=== PATIENT | female | born 1940 | race Caucasian/White ===

== ENCOUNTER 2022-11-23 14:00 | Outpatient (AMB) | payer MEDICARE, OTHER, SELFPAY ==
--- NOTE | 2022-11-23 14:05 | MHC.OFFVIS ---
Intake Vital Signs 11/23/22 14:09 Height 5 ft 1 in Weight 153 lb 7.068 oz BMI 29.0 BP 112/60 Blood Pressure Location Rt brachial Position Sitting Pulse 68 Pulse Source Pulse Oximeter Temp 97.5 F Temp Source Skin Pulse Oximetry (%) 98 Intake Visit Reasons: RA Intake Note: New pt presents today for RA consult. Conference Manager Required: No Allergies doxycycline Allergy (Intermediate, Verified 11/23/22 10:48) Anaphylaxis Sulfa (Sulfonamide Antibiotics) Adverse Reaction (Severe, Verified 11/23/22 10:48) Vomiting meloxicam Adverse Reaction (Intermediate, Verified 11/23/22 10:48) Dizziness hydroxychloroquine [From Plaquenil] Adverse Reaction (Mild, Verified 11/23/22 14:49) Dizziness Antihistamines - Alkylamine Adverse Reaction (Unknown, Unverified 11/23/22 10:48) Unknown cortisone Adverse Reaction (Unknown, Unverified 11/23/22 10:48) Unknown diclofenac Adverse Reaction (Unknown, Unverified 11/23/22 10:48) Vertigo epinephrine Adverse Reaction (Unknown, Verified 11/23/22 10:48) Unknown naproxen [From Aleve] Adverse Reaction (Unknown, Unverified 11/23/22 10:48) Vertigo Penicillins Adverse Reaction (Unknown, Unverified 11/23/22 10:48) Rash prednisone Adverse Reaction (Unknown, Verified 11/23/22 10:48) Agitated, increased blood pressure simvastatin [From Zocor] Adverse Reaction (Unknown, Unverified 11/23/22 10:48) Unknown glipizide Adverse Reaction (Verified 11/23/22 10:48) Hypoglycemia metformin Adverse Reaction (Verified 11/23/22 10:48) Diarrhea Medication List - Last Reconciled 11/23/22 by Glenda Asencio MD atorvastatin 20 mg PO DAILY betamethasone valerate 0.1% appl topical bimatoprost 0.01% (Lumigan) 1 drp ophthalmic (eye) BEDTIME blood sugar diagnostic (FreeStyle Lite Strips) As directed cyclosporine 0.05% drps ophthalmic (eye) famotidine 20 mg PO DAILY PRN folic acid 1 mg PO DAILY leflunomide 10 mg PO DAILY pioglitazone 30 mg PO DAILY HPI HPI Comments History of Present Illness Details This is an 82-year-old female who presents as a new patient. Previous registered dental assistant rda left the practice. Patient was diagnosed with seropositive RA a few months ago when she presented with bilateral hand and wrist swelling pain and stiffness. She was started on prednisone and leflunomide with good results. She is currently on leflunomide 10 mg daily. Prednisone has been completely tapered off a month ago. Patient states that she was diagnosed with ankylosing spondylitis more than 10 years ago. She received NSAIDs. She does not recall being on DMARDs or injectables. States that her low back pain significantly improved with chiropractors, acupuncture, changing diet physical therapy and exercise. Is unaware of any history of iritis. She is unaware of any family history of autoimmune rheumatic disease. Denies any history of DVT/PE. States that she gets neck compression discomfort she does not really call it pain. It does not radiate to her hands or shoulders. She gets intermittently lightheaded and fell 3 times over the last few months. She also has bilateral ankle swelling without pain. She has had dry eyes for years and was using artificial tears until she was evaluated by another health and wellness manager early this year and had a laser procedure which was helpful and she was started on cyclosporine eyedrops. She also mentions that she has had dry mouth for years. She drinks plenty of water. Denies any significant dental problems over the last year. Per Dr. Doty from 10/01 visit Follow-up for new onset seropositive RA + CCP .? 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 I saw her for this more than 10 years ago.? She also carries a diagnosis of fibromyalgia.?? Starting in May of 2022 she had bilateral hand and wrist pain, swelling and pronounced stiffness.? In the mornings she was unable to fern picker a glass.? She was seen in Primary Care, had labs notable for high positive RF, ESR 18.? She was reluctant to go on prednisone (had marked anxiety on high-dose) but eventually started on prednisone 10 mg daily and within 3-4 days symptoms had all but vanished.?? I had her start methotrexate but intolerant (mouth sores, tongue swelling) then tried Plaquenil (intolerant:? Dizziness)? Now on leflunomide 10 mg daily and tolerates fine.?? Prednisone reduced to 3 mg? Reports only no hand symptoms.? No significant a.m. stiffness.? Able to resume full activity.? Mild puffiness around the ankles but no pain or stiffness? On questioning had dry mouth for years and past 1-2 years dry eyes as well.? No cough, pleuritic pain.? No rash.? No GI upset or diarrhea denies urinary incontinence?? 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 Review of Systems Const Reports fatigue Eyes Reports dry eyes and Reports itchy eyes ENT Reports dizziness, Reports dry mouth and Reports neck pain Reports urinary urgency Musc Reports arthralgias, Reports joint swelling and Reports neck pain Neuro Reports dizziness Endo Reports fatigue and Reports polydipsia Aller/Immun Reports itchy eyes Physical Exam Vital Signs: Last Vital Signs Temp 97.5 F 11/23/22 14:09 BMI result Body Mass Index 29.0 Const General: cooperative, healthy appearing and comfortable Nutritional Appearance: overweight Orientation/consciousness: patient oriented x3 Limitations: no limitations HEENT Head: Yes normocephalic and Yes atraumatic Mouth: moist mucous membranes Resp Effort & Inspection: normal respiratory effort and able to speak in complete sentences Auscultation: clear to auscultation bilaterally Cardio Rate: regular rate Rhythm: regular rhythm Skin General skin exam: no rashes or lesions noted Neuro General: patient oriented x3 Extrem Other: Osteoarthritic changes of both hands with prominent Heberden's nodes no active synovitis Prominence of left 1st MCP without tenderness Minimal bilateral wrist tenderness and mild pain with full flexion and extension Normal nailfold capillaroscopy Normal range of motion of both elbows and shoulders without pain Negative straight leg raise test bilaterally Negative Rishabh test bilaterally Filemon test within normal Results Reviewed Results Reviewed: CCP 24 (20-39 is weak positive) RACH IFA negative Lyme screen negative RF high positive CRP normal ESR 18 Assessment & Plan Assessment & Plan (1) Rheumatoid arthritis: Comment: +++RF+CCP Dx 06/01 pred 06/01 tapered off 11/01 MTX (mouth sores, tongue swelling) PLaquenil (dizziness) Leflunomide 10 mg around 08/01 effective Code(s): M06.9 - Rheumatoid arthritis, unspecified Qualifiers: Rheumatoid arthritis location: multiple sites Rheumatoid factor presence: with rheumatoid factor Qualified Code(s): M05.79 - Rheumatoid arthritis with rheumatoid factor of multiple sites without organ or systems involvement Plan: This is an 82-year-old female with recently diagnosed seropositive RA who presents as a new patient. How 2007 patient was diagnosed with HLA B27 positive ankylosing spondylitis, treated with NSAIDs then her back pain symptoms resolved with conservative measures. Her RA is well controlled on leflunomide 10 mg daily. Prednisone had been tapered off about a month ago. Check labs to evaluate disease activity. Check x-rays of involved joints Follow-up in 4 months (2) Sicca syndrome: Code(s): M35.00 - Sjogren syndrome, unspecified Plan: History of dry eye for many years started on cyclosporin 2022 with improvement. Mentions dry mouth for years. Mouth is moist on exam. He had a negative RACH, unlikely Sjogren's. Advised patient to try using Biotene products (3) Cervicalgia: Code(s): M54.2 - Cervicalgia Plan: Will check a neck x-ray (4) Lightheadedness: Code(s): R42 - Dizziness and giddiness Plan: Follow-up with PCP (5) Lower extremity edema: Code(s): R60.0 - Localized edema Plan: No synovitis. Follow-up with PCP (6) Encounter for monitoring leflunomide therapy: Code(s): Z51.81 - Encounter for therapeutic drug level monitoring; Z79.899 - Other ad terminal makeup operator (current) drug therapy Plan: Monitor safety labs (7) Bilateral primary osteoarthritis of knee: Code(s): M17.0 - Bilateral primary osteoarthritis of knee Plan: Patient states that she was told that she was bone on bone in both knees. Knee replacement was recommended patient was able to put it off through physical therapy and strengthening of her quadriceps muscles. Received a steroid injection in her left shoulder which caused significant agitation, received gel injections in the knees in the past and they were not helpful. Currently minimally symptomatic Plan I spent 63 minutes reviewing patient's chart, evaluating patient, ordering diagnostic workup, counseling patient and documenting in the chart Orders: Orders Comprehensive Met. Panel Today M06.9 - Rheumatoid arthritis, unspecified C Reactive Protein Today M06.9 - Rheumatoid arthritis, unspecified Erythrocyte Sedimentation Rate Today M06.9 - Rheumatoid arthritis, unspecified XR hand wrist LT Today M06.9 - Rheumatoid arthritis, unspecified Complete Blood Count Auto Diff Today M06.9 - Rheumatoid arthritis, unspecified Hepatitis A,B,C Profile Today Z11.59 - Encounter for screening for other viral diseases T Spot TB Today Z11.7 - Encounter for testing for latent tuberculosis infection Immunofixation Pnl, Serum Today M06.9 - Rheumatoid arthritis, unspecified Protein Electrophoresis, Serum Today M06.9 - Rheumatoid arthritis, unspecified XR hand wrist RT Today M06.9 - Rheumatoid arthritis, unspecified XR cervical spine 4V Today M06.9 - Rheumatoid arthritis, unspecified Coding Level of Care Code New Pt Level 5 (88017) Diagnoses Rheumatoid arthritis involving multiple sites with positive rheumatoid factor M05.79 Rheumatoid arthritis location: multiple sites Rheumatoid factor presence: with rheumatoid factor Sicca syndrome M35.00 Cervicalgia M54.2 Lightheadedness R42 Lower extremity edema R60.0 Encounter for monitoring leflunomide therapy Z51.81; Z79.899 Bilateral primary osteoarthritis of knee M17.0
[2022-11-23 14:09] VITALS: BP 112/60; PULSE 68; TEMP 36.4; O2SAT 98; BMI 29.0
== END 2022-11-23 14:46 | disposition home or self-care (01) ==
PROVIDERS: PCP Physician Assistant; Visit Provider Student in an Organized Health Care Education/Training Program
DX: M05.79 Rheumatoid arthritis with rheumatoid factor of multiple sites without organ or systems involvement (principal); M35.00 Sjogren syndrome, unspecified; M54.2 Cervicalgia; R42 Dizziness and giddiness; R60.0 Localized edema; Z51.81 Encounter for therapeutic drug level monitoring; Z79.899 Other long term (current) drug therapy; M17.0 Bilateral primary osteoarthritis of knee
CPT/HCPCS: 99205

== ENCOUNTER 2022-11-23 14:00 | Outpatient (REF) | payer MEDICARE, OTHER, SELFPAY ==
--- NOTE | ~2022-11-23 | XR_ITS ---
EXAMINATION: XR cervical spine 4V CLINICAL INFORMATION: Rheumatoid arthritis COMPARISON: None TECHNIQUE: 7 views of the cervical spine were obtained. FINDINGS: The cervical spine is visualized to the level of C6-C7 on the lateral view. Vertebral body alignment is maintained. Vertebral body heights are maintained. Lateral masses of C1 are well aligned on C2. Visualized portion of the dens is intact. Moderate the level degenerative disc disease with loss of disc space height, degenerative endplate spurring and facet arthropathy. No definite cortical erosions. Uncovertebral hypertrophy and facet arthropathy results in moderate left greater than right bilateral neural foraminal narrowing worst on the left at C4-C5 and C5-C6. No prevertebral soft tissue swelling. Calcifications in the soft tissues of the left neck may reflect carotid calcifications. XR/XR cervical spine 4V IMPRESSION: 1. Moderate spondylosis of the cervical spine, as above detailed. 2. Moderate neural foraminal narrowing, as above detailed. 3. Calcifications in the soft tissues of the left neck may reflect carotid calcifications, which could be better evaluated with dedicated carotid ultrasound if warranted.
--- NOTE | ~2022-11-23 | XR_ITS ---
EXAMINATION: XR hand wrist LT, XR hand wrist RT CLINICAL INFORMATION: Reason for Exam M06.9 - Rheumatoid arthritis, unspecified COMPARISON: None. TECHNIQUE: 4 views of the bilateral hands and wrists. FINDINGS: No acute fracture or dislocation. Mild degenerative changes of the left hand involving distal interphalangeal joints with degenerative spurring. No definite left cortical erosion. Mild degenerative changes of the right hand and wrist with degenerative spurring of the distal interphalangeal joints with subchondral sclerosis at the first metacarpophalangeal joint. Well corticated osseous fragment dorsal to the right second DIP joint may reflect sequelae of remote avulsion injury. Nonspecific cystic change in the capitate. No soft tissue abnormality. XR/XR hand wrist LT IMPRESSION: 1. Mild degenerative changes of the left hand involving the distal interphalangeal joints, with no cortical erosion. 2. Mild degenerative changes of the right hand and wrist involving the distal interphalangeal joints and first metacarpophalangeal joint, with nonspecific cystic change in the capitate. 3. Well-corticated osseous fragment dorsal to the right second DIP joint may reflect sequelae of remote avulsion injury.
--- NOTE | ~2022-11-23 | XR_ITS ---
EXAMINATION: XR hand wrist LT, XR hand wrist RT CLINICAL INFORMATION: Reason for Exam M06.9 - Rheumatoid arthritis, unspecified COMPARISON: None. TECHNIQUE: 4 views of the bilateral hands and wrists. FINDINGS: No acute fracture or dislocation. Mild degenerative changes of the left hand involving distal interphalangeal joints with degenerative spurring. No definite left cortical erosion. Mild degenerative changes of the right hand and wrist with degenerative spurring of the distal interphalangeal joints with subchondral sclerosis at the first metacarpophalangeal joint. Well corticated osseous fragment dorsal to the right second DIP joint may reflect sequelae of remote avulsion injury. Nonspecific cystic change in the capitate. No soft tissue abnormality. XR/XR hand wrist RT IMPRESSION: 1. Mild degenerative changes of the left hand involving the distal interphalangeal joints, with no cortical erosion. 2. Mild degenerative changes of the right hand and wrist involving the distal interphalangeal joints and first metacarpophalangeal joint, with nonspecific cystic change in the capitate. 3. Well-corticated osseous fragment dorsal to the right second DIP joint may reflect sequelae of remote avulsion injury.
[2022-11-23 15:16] LABS: MANUAL DIFF FLAG NO
[2022-11-23 15:24] LABS: Basophils Absolute Auto 0.1 X10*3/uL (0.0-0.2); Basophils Percent Auto 1.1 % (0-2); Eosinophils Absolute Auto 0.2 X10*3/uL (0.0-0.4); Hematocrit 38.3 % (37.0-47.0); Hemoglobin 12.8 g/dl (12.0-16.0); Imm Gran Abs Auto 0.01 X10*3/uL (0.00-0.03); Imm Gran Pct Auto 0.2 % (0.0-0.4); Lymphocytes Absolute Auto 1.5 X10*3/uL (1.2-4.9); Lymphocytes Percent Auto 22.2 % (20-40); Mean Corpuscular HGB Conc 33.4 g/dl (31.0-35.0); Mean Corpuscular Hemoglobin 29.6 pg (27.0-33.0); Mean Corpuscular Volume 88.7 fL (80.0-98.0); Mean Platelet Volume 9.2 fL (9.4-12.3); Monocytes Absolute Auto 0.6 X10*3/uL (0.1-1.2); Monocytes Percent Auto 9.1 % (2-11); Neutrophils Absolute Auto 4.3 x10*3/uL (2.0-8.3); Neutrophils Percent Auto 64.4 % (45-73); Platelet Count 313 X10*3/uL (160-400); Red Blood Count 4.32 X10*6/uL (4.20-5.50); Red Cell Distribution Width 13.8 % (11.0-16.0); White Blood Count 6.6 X10*3/uL (4.8-10.8)
[2022-11-23 15:56] LABS: Alanine Aminotransferase 16 U/L (0-31); Albumin Level 4.2 g/dL (3.5-5.0); Alkaline Phosphatase 79 U/L (39-117); Anion Gap 11 (12-20); Aspartate Amino Transferase 23 U/L (5-31); Bilirubin Total 0.3 mg/dL (0.0-1.0); Blood Urea Nitrogen 19 mg/dL (9-16); C Reactive Protein 0.15 mg/dL (< or = 0.50); Calcium 10.1 mg/dL (8.4-10.2); Carbon Dioxide 28 mmol/L (22-29); Chloride 106 mmol/L (96-108); Estimated Glomerular Filt Rate 53; Glucose Random 162 mg/dL (60-115); Potassium 3.9 mmol/L (3.3-5.1); Sodium 141 mmol/L (135-145); Total Protein 7.1 g/dL (6.5-8.0)
[2022-11-23 16:18] LABS: Erythrocyte Sedimentation Rate 23 MM/HR (0-20)
[2022-11-24 09:35] LABS: HBS Num1 0.18 mIU/mL (0-7.99); HBc Num1 0.11 S/CO (0.00-0.79); HBsAGNum1 0.26 S/CO (0.00-0.99); Hepatitis A Antibody IgM 0.26 Index (0-0.79); Hepatitis B Core Antibody Nonreactive (Nonreactive); Hepatitis B Surface Antigen Negative (Negative); ~HepC Num1 0.04 S/CO (0.00-0.79); ~Hepatitis A Antibody IgM Nonreactive (Nonreactive); ~Hepatitis B Surface Antibody NONREACTIVE (Nonreactive); ~Hepatitis C Antibody Nonreactive (Nonreactive)
[2022-11-25 16:48] LABS: TS Negative Control Passed; TS Panel A 0; TS Panel B 0; TS Positive Control Passed; TSpotTB Negative (Negative)
[2022-11-27 11:59] LABS: Prot Elec - Albumin 4.1 g/dL (3.8-4.8); Prot Elec - Alpha1 0.3 g/dL (0.2-0.3); Prot Elec - Alpha2 0.9 g/dL (0.5-0.9); Prot Elec - Beta 1 0.4 g/dL (0.4-0.6); Prot Elec - Beta 2 0.3 g/dL (0.2-0.5); Prot Elec - Gamma 0.9 g/dL (0.8-1.7)
[2022-11-29 10:48] LABS: IgA 156 mg/dL (70-320); IgG 1068 mg/dL (600-1540); IgM 81 mg/dL (50-300)
== END 2022-11-23 14:01 | disposition home or self-care (01) ==
LOC: HO.LAB 14:00
PROVIDERS: PCP Physician Assistant; Visit Provider Student in an Organized Health Care Education/Training Program
DX: Z11.59 Encounter for screening for other viral diseases (principal); Z11.7 Encounter for testing for latent tuberculosis infection; M05.79 Rheumatoid arthritis with rheumatoid factor of multiple sites without organ or systems involvement; M35.00 Sjogren syndrome, unspecified; M54.2 Cervicalgia; R42 Dizziness and giddiness; R60.0 Localized edema; M17.0 Bilateral primary osteoarthritis of knee; Z79.899 Other long term (current) drug therapy; Z72.89 Other problems related to lifestyle
CPT/HCPCS: 36415; 72050; 73110; 73130; 80053; 82784; 84165; 85025; 85652; 86140; 86334; 86481; 86704; 86706; 86709; 86803; 87340

== ENCOUNTER 2023-03-21 10:07 | Outpatient (AMB) | payer MEDICARE, OTHER, SELFPAY ==
--- NOTE | 2023-03-21 10:08 | A.OFFVIS_ITS ---
Intake Intake Visit Reasons: RA Intake Note: Telehealth follow up, pt last seen 11/23/22 completed labs and x-rays. C/o lots of inflammation in neck and spine; fatigue, and stiffness in fingers bl hands. Reports using cbd.. Trouble Operator Required: No Allergies doxycycline Allergy (Intermediate, Verified 03/21/23 10:09) Anaphylaxis Sulfa (Sulfonamide Antibiotics) Adverse Reaction (Severe, Verified 03/21/23 10:09) Vomiting meloxicam Adverse Reaction (Intermediate, Verified 03/21/23 10:09) Dizziness hydroxychloroquine [From Plaquenil] Adverse Reaction (Mild, Verified 03/21/23 10:09) Dizziness Antihistamines - Alkylamine Adverse Reaction (Unknown, Unverified 03/21/23 10:09) Unknown cortisone Adverse Reaction (Unknown, Unverified 03/21/23 10:09) Unknown diclofenac Adverse Reaction (Unknown, Unverified 03/21/23 10:09) Vertigo epinephrine Adverse Reaction (Unknown, Verified 03/21/23 10:09) Unknown naproxen [From Aleve] Adverse Reaction (Unknown, Unverified 03/21/23 10:09) Vertigo Penicillins Adverse Reaction (Unknown, Unverified 03/21/23 10:09) Rash prednisone Adverse Reaction (Unknown, Verified 03/21/23 10:09) Agitated, increased blood pressure simvastatin [From Zocor] Adverse Reaction (Unknown, Unverified 03/21/23 10:09) Unknown glipizide Adverse Reaction (Verified 03/21/23 10:09) Hypoglycemia metformin Adverse Reaction (Verified 03/21/23 10:09) Diarrhea Medication List - Last Reconciled 03/21/23 by Glenda Asencio MD albuterol sulfate 90 mcg/actuation inhalation atorvastatin 20 mg PO DAILY betamethasone valerate 0.1% appl topical bimatoprost 0.01% (Lumigan) 1 drp ophthalmic (eye) BEDTIME blood sugar diagnostic (FreeStyle Lite Strips) As directed cyclosporine 0.05% drps ophthalmic (eye) estradiol 0.01%(0.1mg/gram) vaginal famotidine 20 mg PO DAILY PRN leflunomide 10 mg PO DAILY HPI HPI Comments History of Present Illness Details 83-year-old female with seropositive RA returns for telehealth phone visit. She was unable to drive to clinic today. She remains on leflunomide 10 mg daily. She states that her joints are wonderful . Her main complaint today is fatigue. She states that she has been feeling fatigued since the fall. She states that she gets arm and leg weakness when doing activities. She does not have the energy that she used to have. He denies any swollen joints. She stated that when she started leflunomide last year in May she did not have any side effects to it including fatigue.. She was recently evaluated by her customer management specialist, she has a pacemaker and she was told everything was within normal. Initial hx with ne 11/2022:This is an 82-year-old female who presents as a new patient. Previous rn pacu left the practice. Patient was diagnosed with seropositive RA a few months ago when she presented with bilateral hand and wrist swelling pain and stiffness. She was started on prednisone and leflunomide with good results. She is currently on leflunomide 10 mg daily. Prednisone has been completely tapered off a month ago. Patient states that she was diagnosed with ankylosing spondylitis more than 10 years ago. She received NSAIDs. She does not recall being on DMARDs or injectables. States that her low back pain significantly improved with chiropractors, acupuncture, changing diet physical therapy and exercise. Is unaware of any history of iritis. She is unaware of any family history of autoimmune rheumatic disease. Denies any history of DVT/PE. States that she gets neck compression discomfort she does not really call it pain. It does not radiate to her hands or shoulders. She gets intermittently lightheaded and fell 3 times over the last few months. She also has bilateral ankle swelling without pain. She has had dry eyes for years and was using artificial tears until she was evaluated by another c programmer early this year and had a laser procedure which was helpful and she was started on cyclosporine eyedrops. She also mentions that she has had dry mouth for years. She drinks plenty of water. Denies any significant dental problems over the last year. Per Dr. Doty from 10/01 visit Follow-up for new onset seropositive RA + CCP .? Ask added diagnosis of B27 positive s pondyloarthropathy, though symptoms of this have been quiet for years.? I saw her for this more than 10 years ago.? She also carries a diagnosis of fibromyalgia.?? Starting in May of 2022 she had bilateral hand and wrist pain, swelling and pronounced stiffness.? In the mornings she was unable to sisal picker a glass.? She was seen in Primary Care, had labs notable for high positive RF, ESR 18.? She was reluctant to go on prednisone (had marked anxiety on high-dose) but eventually started on prednisone 10 mg daily and within 3-4 days symptoms had all but vanished.?? I had her start methotrexate but intolerant (mouth sores, tongue swelling) then tried Plaquenil (intolerant:? Dizziness)? Now on leflunomide 10 mg daily and tolerates fine.?? Prednisone reduced to 3 mg? Reports only no hand symptoms.? No significant a.m. stiffness.? Able to resume full activity.? Mild puffiness around the ankles but no pain or stiffness? On questioning had dry mouth for years and past 1-2 years dry eyes as well.? No cough, pleuritic pain.? No rash.? No GI upset or diarrhea denies urinary incontinence?? 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 Review of Systems Musc Denies arthralgias and Denies joint swelling Physical Exam Const Other: Telehealth visit General: cooperative and comfortable Orientation/consciousness: patient oriented x3 Resp Effort & Inspection: normal respiratory effort and able to speak in complete sentences Neuro General: patient oriented x3 Results Reviewed Results Reviewed: CCP 24 (20-39 is weak positive) RACH IFA negative Lyme screen negative RF high positive CRP normal ESR 18 Assessment & Plan Assessment & Plan (1) Rheumatoid arthritis: Comment: +++RF+CCP Dx 3/23 pred 06/01 tapered off 11/01 MTX (mouth sores, tongue swelling) PLaquenil (dizziness) Leflunomide 10 mg around 08/01 effective Code(s): M06.9 - Rheumatoid arthritis, unspecified Qualifiers: Rheumatoid arthritis location: multiple sites Rheumatoid factor presence: with rheumatoid factor Qualified Code(s): M05.79 - Rheumatoid arthritis with rheumatoid factor of multiple sites without organ or systems involvement Plan: This is an 83-year-old female with recently diagnosed seropositive RA who presents as a new patient. In 2007 patient was diagnosed with HLA B27 positive ankylosing spondylitis, treated with NSAIDs then her back pain symptoms resolved with conservative measures. Her RA is well controlled on leflunomide 10 mg daily. Check labs to evaluate disease activity. Follow-up in 3 months (2) Encounter for monitoring leflunomide therapy: Code(s): Z51.81 - Encounter for therapeutic drug level monitoring; Z79.899 - Other ocean transportation intermediary (current) drug therapy Plan: Monitor safety labs. Patient stated that she has been having fatigue symptoms and muscle weakness with activity since the fall. She does not recall having fatigue as a side effect when leflunomide was started last year. Will check blood work. Seems less likely that it is a side effect of leflunomide. She also mentions that she does not have any significant MSK complaints, so uncontrolled RA disease activity is not likely to be causing her fatigue. I would like to re-evaluate patient in clinic. I also advised patient to follow-up with her PCP Plan I spent 15 minutes on the phone with patient, additional 10 minutes were spent placing orders, and documenting in the chart Telehealth Telehealth Location of provider rendering services: practice address Location of patient: address on file Telehealth method: voice only Coding Level of Care Code Tele Est Pt Level 4 (89909) Diagnoses Rheumatoid arthritis involving multiple sites with positive rheumatoid factor M05.79 Rheumatoid arthritis location: multiple sites Rheumatoid factor presence: with rheumatoid factor Encounter for monitoring leflunomide therapy Z51.81; Z79.899
== END 2023-03-21 10:46 | disposition home or self-care (01) ==
LOC: HO.RHE 10:07
PROVIDERS: PCP Physician Assistant; Visit Provider Student in an Organized Health Care Education/Training Program
DX: M05.79 Rheumatoid arthritis with rheumatoid factor of multiple sites without organ or systems involvement (principal); Z51.81 Encounter for therapeutic drug level monitoring; Z79.899 Other long term (current) drug therapy
CPT/HCPCS: 99443

== ENCOUNTER → 2023-03-21 10:07 | Outpatient (BNVA) | payer MEDICARE, OTHER, SELFPAY | PROVIDERS: PCP Physician Assistant; Visit Provider Student in an Organized Health Care Education/Training Program ==